=== PATIENT | female | born 1985 | race Caucasian/White ===

== ENCOUNTER 2017-11-16 16:37 | Emergency (ER) | payer OTHER ==
[~2017-11-16] VITALS: Ht 175.3 cm; Wt 93.4 kg
--- NOTE | 2017-11-16 16:59 | PHYS DOC ---
Adult General Chief Complaint Chief Complaint: NECK INJURY HPI HPI 32-year-old female presents with neck pain. The patient was at the gym working on a leg press when the sled unlocked and hit her in the right side of her head. She has an abrasion on her right forehead, but her primary complaint is that her neck is sore around C6-C7. She also hit her left knee, but states this is superficial and was not bothering her. She denies being knocked out. She has full range of motion of her neck. She denies headache. She has no visual changes. She really is here out of abundance of caution. Review of Systems Review of Systems Constitutional: Denies fever or chills [] Eyes: Denies change in visual acuity, redness, or eye pain [] HENT: Head injury, neck pain[] Respiratory: Denies cough or shortness of breath [] Cardiovascular: No additional information not addressed in HPI [] GI: Denies abdominal pain, nausea, vomiting, bloody stools or diarrhea [] : Denies dysuria or hematuria [] Musculoskeletal: Denies back pain or joint pain [] Integument: Denies rash or skin lesions [] Neurologic: Denies headache, focal weakness or sensory changes [] Endocrine: Denies polyuria or polydipsia [] All other systems were reviewed and found to be within normal limits, except as documented in this note. Allergies Allergies Allergies Coded Allergies Type Severity Reaction Last Updated Verified Penicillins Allergy Intermediate 11/16/17 Yes codeine Allergy Intermediate 11/16/17 Yes Uncoded Allergies Type Severity Reaction Last Updated Verified PLASTIC TAPE Allergy Intermediate 11/16/17 Physical Exam Physical Exam Constitutional: Well developed, well nourished, no acute distress, non-toxic appearance. [] HENT: Normocephalic, bilateral external ears normal, oropharynx moist, no oral exudates, nose normal. Superficial abrasion of the right forehead at the hairline.[] Eyes: PERRLA, EOMI, conjunctiva normal, no discharge. [] Neck: Normal range of motion, no bony tenderness, supple, no stridor. [] Cardiovascular:Heart rate regular rhythm, no murmur [] Lungs & Thorax: Bilateral breath sounds clear to auscultation [] Abdomen: Bowel sounds normal, soft, no tenderness, no masses, no pulsatile masses. [] Skin: Warm, dry, no erythema, no rash. [] Back: No tenderness, no CVA tenderness. [] Extremities: No tenderness, no cyanosis, no clubbing, ROM intact, no edema. [] Neurologic: Alert and oriented X 3, normal motor function, normal sensory function, no focal deficits noted. [] Psychologic: Affect normal, judgement normal, mood normal. [] EKG EKG [] Radiology/Procedures Radiology/Procedures [] Impressions: My impression: No acute fracture or Course & Med Decision Making Course & Med Decision Making Pertinent Labs and Imaging studies reviewed. (See chart for details) Patient's x-rays are negative for fracture. She is stable for discharge at this time. She will use ibuprofen for pain control at home. [] Dragon Disclaimer Dragon Disclaimer This electronic medical record was generated, in whole or in part, using a voice recognition dictation system. Departure Departure: Referrals: PCP,UNKNOWN (PCP) BEBA GORDON DO Nov 16, 2017 16:59
[2017-11-16 18:24] VITALS: BP 138/80
--- NOTE | 2017-11-16 23:50 | RAD ---
Cervical spine 3 views: Reason for examination: Hit in head and neck with exercise equipment today. The odontoid process appears to be intact. The vertebral bodies of the cervical spine are normally aligned anteriorly and posteriorly. No acute fracture or subluxation is seen. Posterior elements appear to be intact. The intervertebral discs are maintained. Prevertebral soft tissues are normal. IMPRESSION: No acute abnormality evident in the cervical spine Electronically signed by: Nati Hensley MD (11/16/2017 11:47 PM) [facility]
== END 2017-11-16 18:20 | disposition home or self-care (01) ==
LOC: ER 16:37
DX: S00.81XA Abrasion of other part of head, initial encounter (principal); M54.2 Cervicalgia; W20.8XXA Other cause of strike by thrown, projected or falling object, initial encounter; Y93.B9 Activity, other involving muscle strengthening exercises; Y92.89 Other specified places as the place of occurrence of the external cause; Y99.8 Other external cause status
CPT/HCPCS: 72040; 99284